=== PATIENT | female | born 1985 | race Caucasian/White ===

== ENCOUNTER 2016-07-20 08:02 | Day surgery (SDC) | payer OTHER ==
[~2016-07-20] VITALS: Ht 157.5 cm; Wt 79.4 kg
[~2016-07-20 08:02] MED LIST: DEPO-PROVER150 MG/ML IM; ENDOCET 5-3251 EACH PO; EXCEDRIN EXTRA1 EACH PO; FLINTSTONES1 EACH PO; IBUPROFEN800 MG PO; Motrin PO; NOHOMEMEDS; PROMETHAZINE HC25 M1 PO; ~No Medications
[2016-07-20 08:51] VITALS: BP 121/62
[2016-07-20] MEDS ORDERED: MOTRIN800 MG PO (11:58)
[2016-07-20] MEDS ORDERED: PERCOCET 5/31 TABLET PO (11:58)
[2016-07-20 12:58] VITALS: BP 108/88
== END 2016-07-20 13:20 | disposition home or self-care (01) ==
LOC: SDC 08:02
DX: Z30.2 Encounter for sterilization (principal); N87.1 Moderate cervical dysplasia; F17.200 Nicotine dependence, unspecified, uncomplicated
CPT/HCPCS: J1100; J1170; J1885; J2250; J2405; J2710; J2765; J3010